=== PATIENT | male | born 1935 | race Caucasian/White ===

== ENCOUNTER 2017-07-30 19:30 | Inpatient (IN) | payer OTHER, MEDICARE ==
[~2017-07-30] VITALS: Ht 177.8 cm; Wt 80.1 kg
[~2017-07-30 19:30] MED LIST: ASPI81TA28 PO; DIPH50TA10 PO; FURO-85 PO; GLUCTAB7 PO; LEVO50TA6 PO; LOSA1TAB PO; LPT20 PO; MELATAB2 PO; METO25TA4 PO; NTRGSL/4 UT; PRLSR20 PO; SPIR25TA PO
[2017-07-30] MEDS ORDERED: SODIUM CHLORIDE 0.9% 1000ML 1,000 ML IV STA (20:45)
[2017-07-30] MEDS ORDERED: ACETAMINOPHEN 325 MG TAB PO STA (20:45)
[2017-07-30] MEDS ORDERED: IBUPROFEN 600 MG TAB PO STA (20:45)
[2017-07-30] MEDS ORDERED: TPRSR/100 PO (20:54)
[2017-07-30] MEDS ORDERED: LSX20 PO (20:54)
[2017-07-30] MEDS ORDERED: OMEP20CA9 PO (20:54)
[2017-07-30] MEDS ORDERED: CZR25 PO (20:54)
[2017-07-30] MEDS ORDERED: ATOR-22 PO (20:54)
[2017-07-30] MEDS ORDERED: SPR25 PO (20:54)
--- NOTE | 2017-07-30 20:55 | EMERGENCY ROOM VISIT NOTE ---
History Report prepared by Solange: Jorge Pinedo Under the Supervision of: Dr. Ludwig Herrera M.D. First contact with patient: 20:13 Chief Complaint: ILLNESS Stated Complaint: CONFUSION, DIZZY, COUGH, CHILLS History of Present Illness The patient is a 81 year old male with a past medical history of hypothyroidism who presents to the ED with a cc of intermittent dizziness beginning two days ago. Positive for fever, lightheadedness, back pain, confused speech, and dry cough. Negative for heart racing, vomiting, rashes, urinary symptoms, abdominal pain, and bowel issues. The patient states that he is currently feeling less dizzy than he typically has been for the last two days. He notes that when he is dizzy, he feels lightheaded. He reports that he has chronic pain in his lower back and middle back. The patient states that his pain stays in those spots and does not move. Per family, the patient has been having confused speech this evening. Source of History: patient, family Onset: two days ago Position: head Quality: other (dizziness) Timing: intermittent Associated Symptoms: + fevers, + cough (dry), + back pain, No vomiting, No abdominal pain, No urinary symptoms, No rash Note: The patient also complains of lightheadedness and confused speech. He denies any heart racing and bowel issues. Review of Systems See HPI for pertinent positives and negatives. A total of ten systems were reviewed and were otherwise negative. Past Medical & Surgical Medical Problems: (1) Biventricular ICD (implantable cardioverter-defibrillator) in place (2) BPH without obstruction/lower urinary tract symptoms (3) Chronic back pain (4) Coronary atherosclerosis (5) Frequent unifocal PVCs (6) Hypercholesteremia (7) Hypothyroidism (8) Influenza (9) LBBB (left bundle branch block) (10) NICM (nonischemic cardiomyopathy) (11) Non-rheumatic mitral regurgitation (12) S/P hernia repair Family History FH: diabetes mellitus FH: hypertension FH: lung disease Social History Smoking Status: Never Smoker Alcohol Use: none Drug Use: none Marital Status: Housing Status: lives with family Occupation Status: unemployed Current/Historical Medications Scheduled Aspirin (Aspirin Ec), 81 MG PO QPM Atorvastatin (Lipitor), 20 MG PO QPM Furosemide (Furosemide), 20 MG PO QAM Levothyroxine Sodium (Levothyroxine Sodium), 50 MCG PO 6XWEEK Losartan Potassium (Losartan Potassium), 25 MG PO QAM Metoprolol Succinate (Metoprolol Succinate ER), 100 MG PO QAM Omeprazole (Prilosec), 20 MG PO QAM Spironolactone (Spironolactone), 12.5 MG PO QAM Scheduled PRN Diphenhydramine Hcl (Benadryl Allergy), 1 CAP PO HS PRN for insomnia Melatonin (Melatonin Maximum Strengt), 5-10 MG PO HS PRN for Sleep Nitroglycerin (Nitrostat), 0.4 MG UT UD PRN for Chest Pain Allergies Coded Allergies: No Known Allergies (Unverified , 12/17/15) Physical Exam Vital Signs Date Time Temp Pulse Resp B/P (MAP) Pulse Ox O2 Delivery O2 Flow Rate FiO2 07/30/17 21:37 38.1 89 16 161/80 96 Room Air 07/30/17 21:10 61 07/30/17 21:10 90 07/30/17 21:05 96 Room Air 07/30/17 19:32 38.1 92 18 141/77 96 Room Air Physical Exam GENERAL: Awake, alert, well-appearing, NAD, wearing glasses HENT: Normocephalic, atraumatic. EYES: Normal conjunctiva. Sclera non-icteric. NECK: Supple. No nuchal rigidity. FROM. RESPIRATORY: CTAB, no rhonchi, wheezing, crackles CHEST: Device noted in L chest, no chest wall pain CARDIAC: RRR, no MRG ABDOMEN: Soft, NTND, BS+ MSK: No chest wall TTP, no LE edema NEURO: CN 2-12 intact, 5/5 upper and lower extremity strength, no dysmetria, no drift, good finger to nose, no sensory deficits, A&O x3, GCS 15. SKIN: No rash or jaundice noted. Medical Decision & Procedures ER Provider Diagnostic Interpretation: Radiology results as stated below per my review and radiologist interpretation: CHEST ONE VIEW PORTABLE FINDINGS: Cardiac silhouette is again enlarged. Left subclavian pacer/AICD is noted with leads appearing to be intact. There is mild pulmonary vascular congestion without overt pulmonary edema. No pneumothorax. There are subsegmental left basilar opacities with blunting of the left costophrenic angle. Bones appear grossly intact. IMPRESSION: 1. Cardiomegaly with mild pulmonary vascular congestion. 2. Subsegmental left basilar opacities suggest atelectasis or pneumonitis with probable trace left pleural effusion. The above report was generated using voice recognition software. It may contain grammatical, syntax or spelling errors. Electronically signed by: Jonathon Flor M.D. 07/30/2017 9:16 PM HEAD WITHOUT CONTRAST (CT) FINDINGS: No acute intracranial hemorrhage, midline shift, intracranial mass, hydrocephalus, territorial ischemia or abnormal extra-axial collection. Mild atrophy. Cerebral vascular calcifications are seen at the level of the skull base. The calvarium is intact. Mild mucoperiosteal thickening about the right maxillary sinus with mild ethmoid sinus disease. Soft tissues are unremarkable. Orbits are symmetric. IMPRESSION: No acute intracranial abnormality. The above report was generated using voice recognition software. It may contain grammatical, syntax or spelling errors. Electronically signed by: Jonathon Flor M.D. 07/30/2017 9:37 PM Laboratory Results 07/30/17 20:00 Red Blood Count 4.59, Mean Corpuscular Volume 92.8, Mean Corpuscular Hemoglobin 33.1, Mean Corpuscular Hemoglobin Concent 35.7, Mean Platelet Volume 9.9, Neutrophils (%) (Auto) 82.4, Lymphocytes (%) (Auto) 10.8, Monocytes (%) (Auto) 6.4, Eosinophils (%) (Auto) 0.0, Basophils (%) (Auto) 0.2, Neutrophils # (Auto) 4.64, Lymphocytes # (Auto) 0.61, Monocytes # (Auto) 0.36, Eosinophils # (Auto) 0.00, Basophils # (Auto) 0.01 07/30/17 20:00 Test 07/30/17 20:00 07/30/17 20:55 07/30/17 21:00 White Blood Count 5.63 K/uL (4.8-10.8) Red Blood Count 4.59 M/uL (4.7-6.1) Hemoglobin 15.2 g/dL (14.0-18.0) Hematocrit 42.6 % (42-52) Mean Corpuscular Volume 92.8 fL (80-100) Mean Corpuscular Hemoglobin 33.1 pg (25-34) Mean Corpuscular Hemoglobin Concent 35.7 g/dl (32-36) Platelet Count 160 K/uL (130-400) Mean Platelet Volume 9.9 fL (7.4-10.4) Neutrophils (%) (Auto) 82.4 % Lymphocytes (%) (Auto) 10.8 % Monocytes (%) (Auto) 6.4 % Eosinophils (%) (Auto) 0.0 % Basophils (%) (Auto) 0.2 % Neutrophils # (Auto) 4.64 K/uL (1.4-6.5) Lymphocytes # (Auto) 0.61 K/uL (1.2-3.4) Monocytes # (Auto) 0.36 K/uL (0.11-0.59) Eosinophils # (Auto) 0.00 K/uL (0-0.5) Basophils # (Auto) 0.01 K/uL (0-0.2) RDW Standard Deviation 45.1 fL (36.4-46.3) RDW Coefficient of Variation 13.2 % (11.5-14.5) Immature Granulocyte % (Auto) 0.2 % Immature Granulocyte # (Auto) 0.01 K/uL (0.00-0.02) Anion Gap 5.0 mmol/L (3-11) Est Creatinine Clear Calc Drug Dose 61.2 ml/min Estimated GFR () 81.6 Estimated GFR (Non- 70.4 BUN/Creatinine Ratio 12.4 (10-20) Calcium Level 8.6 mg/dl (8.5-10.1) Total Bilirubin 0.6 mg/dl (0.2-1) Direct Bilirubin 0.2 mg/dl (0-0.2) Aspartate Amino Transf (AST/SGOT) 24 U/L (15-37) Alanine Aminotransferase (ALT/SGPT) 26 U/L (12-78) Alkaline Phosphatase 84 U/L (45-117) Total Protein 7.6 gm/dl (6.4-8.2) Albumin 4.2 gm/dl (3.4-5.0) Lipase 139 U/L (73-393) Influenza Type A Antigen Neg for Influ A (NEG) Influenza Type B Antigen POS for Influ B (NEG) Urine Color YELLOW Urine Appearance CLEAR (CLEAR) Urine pH 5.0 (4.5-7.5) Urine Specific [place] 1.018 (1.000-1.030) Urine Protein NEG (NEG) Urine Glucose (UA) NEG (NEG) Urine Ketones TRACE (NEG) Urine Occult Blood TRACE (NEG) Urine Nitrite NEG (NEG) Urine Bilirubin NEG (NEG) Urine Urobilinogen NEG (NEG) Urine Leukocyte Esterase NEG (NEG) Urine WBC (Auto) 0 /hpf (0-5) Urine RBC (Auto) 0-4 /hpf (0-4) Urine Hyaline Casts (Auto) 0 /lpf (0-5) Urine Epithelial Cells (Auto) 0-5 /lpf (0-5) Urine Bacteria (Auto) NEG (NEG) Laboratory results reviewed by me Medications Administered Medications (Trade) Dose Ordered Sig/Todd Route Start Time Stop Time Status Last Admin Dose Admin Sodium Chloride 1,000 ml @ 999 mls/hr Q1H1M STAT IV 07/30/17 20:45 07/30/17 21:45 DC 07/30/17 20:45 999 MLS/HR Acetaminophen (Tylenol Tab) 650 mg NOW STAT PO 07/30/17 20:45 07/30/17 20:46 DC 07/30/17 20:56 650 MG Ibuprofen (Motrin Tab) 600 mg NOW STAT PO 07/30/17 20:45 07/30/17 20:46 DC 07/30/17 20:56 600 MG Ceftriaxone Sodium (Rocephin Inj) 1 gm NOW STAT IV 07/30/17 21:43 07/30/17 21:44 DC 07/30/17 21:51 1 GM Azithromycin (Zithromax Tab) 500 mg NOW ONCE PO 07/30/17 21:45 07/30/17 21:46 DC 07/30/17 21:51 500 MG Oseltamivir Phosphate (Tamiflu Cap) 75 mg NOW STAT PO 07/30/17 21:56 07/30/17 21:57 DC 07/30/17 21:56 75 MG ECG Per My Interpretation Indication: other (dizziness) Rate (beats per minute): 90 Rhythm: other (a-sense v-paced) Findings: Q waves (Anterior, Inferior), left axis deviation, other (Wide QRS, occasionally v paced) Comparison ECG Date: March 2015 Change: Pacing is new compared to prior. ED Course 2100: The patient was evaluated in room B7. A complete history and physical exam was performed. 2212: Upon reexamination, the patient was stable. I discussed the test results and treatment plan with him. Discussed the patient's case with Dr. Seo - HospitalistLouie. The patient will be evaluated for further management. 2220: I reevaluated and updated the patient. Medical Decision The patient is a 81 year old male with a past medical history of hypothyroidism who presents to the ED with a cc of intermittent dizziness beginning two days ago. Positive for fever, lightheadedness, back pain, confused speech, and dry cough. Negative for heart racing, vomiting, rashes, urinary symptoms, abdominal pain, and bowel issues. Differential diagnosis: Etiologies such as benign positional vertigo, dehydration, hypovolemia, anemia, tumor, infection, hypoglycemia, electrolyte abnormalities, cardiac sources, intracerebral event, toxicologic, neurologic, as well as others were entertained. Patient was seen and evaluated the bedside. Patient had complained of some intermittent dizziness although he was asymptomatic at this time. Patient described as lightheadedness. Patient also describes some back pain that was midline and nonradiating. Patient states that this been ongoing for many years though patient also did have a dry cough. The family over the bedside was concerned as the patient has had some confused speech. On exam the patient is alert and oriented. The patient is able to follow my commands does not have any focal neurologic deficits. No recent trauma. Patient does have blood work completed along with an EKG, troponin, chest x-ray, CT brain, and urinalysis. Patient has a normal white blood cell count. Patient kidney function normal. Patient had a negative CT of the brain. Patient's showed no signs of meningismus. I do not believe he requires lumbar puncture or further advanced imaging at this time. Patient's chest x-ray did show questionable opacities at the left base. Given the patient's cough as well as confusion is concerned about possible pneumonia. Patient was given Rocephin and azithromycin. Patient also did have a positive flu and was given Tamiflu. Patient did have a curb 65 score of 2. I discussed these results with the patient and recommended further inpatient evaluation treatment. I did speak with the hospitalist who also agreed to further evaluate and treat patient. Patient was admitted to the medicine service. Head Trauma GCS Score: 15 Medication Reconcilliation Current Medication List: was personally reviewed by me Blood Pressure Screening Patient's blood pressure: Normal blood pressure Blood pressure disposition: Did not require urgent referral Consults Time Called: 2209 Consulting Physician: Dr. Seo - HospitalistLouie Returned Call: [phone] Discussed the patient's case. The patient will be evaluated for further treatment and disposition. Impression Primary Impression: Pneumonia Additional Impressions: Influenza B Confusion Scribe Attestation The scribe's documentation has been prepared under my direction and personally reviewed by me in its entirety. I confirm that the note above accurately reflects all work, treatment, procedures, and medical decision making performed by me. Departure Information Dispostion Being Evaluated By Hospitalist Referrals Reese Nieto M.D. (PCP) Patient Instructions My [facility] Problem Qualifiers Primary Impression: Pneumonia Pneumonia type: due to unspecified organism Laterality: left Lung location : lower lobe of lung Qualified Codes: J18.1 - Lobar pneumonia, unspecified organism
[2017-07-30 21:05] LABS: BASO % 0.2 %; BASO ABS # 0.01 K/uL (0-0.2); HEMATOCRIT 42.6 % (42-52); HEMOGLOBIN 15.2 g/dL (14.0-18.0); IG# 0.01 K/uL (0.00-0.02); LYMPH % 10.8 %; LYMPH ABS # 0.61 K/uL (1.2-3.4); MEAN CELL VOLUME 92.8 fL (80-100); MEAN CORPUSCULAR HEMOGLOBIN 33.1 pg (25-34); MEAN CORPUSCULAR HGB CONC 35.7 g/dl (32-36); MEAN PLATELET VOLUME 9.9 fL (7.4-10.4); MONO % 6.4 %; MONO ABS # 0.36 K/uL (0.11-0.59); NEUT % 82.4 %; NEUT ABS # 4.64 K/uL (1.4-6.5); PLATELET COUNT 160 K/uL (130-400); RED CELL DISTRIBUTION WIDTH CV 13.2 % (11.5-14.5); RED CELL DISTRIBUTION WIDTH SD 45.1 fL (36.4-46.3); WHITE BLOOD COUNT 5.63 K/uL (4.8-10.8)
[2017-07-30 21:15] LABS: ALBUMIN 4.2 gm/dl (3.4-5.0); CALCIUM 8.6 mg/dl (8.5-10.1); CREATININE 1.01 mg/dl (0.60-1.40); POTASSIUM 3.8 mmol/L (3.5-5.1)
--- NOTE | 2017-07-30 21:17 | DIAGNOSTIC IMAGING REPORT ---
CHEST ONE VIEW PORTABLE HISTORY: 81 years-old Male Evaluate Fever/Sepsis acute fever and sepsis COMPARISON: Chest radiographs 12/21/2014 TECHNIQUE: Portable AP view of the chest FINDINGS: Cardiac silhouette is again enlarged. Left subclavian pacer/AICD is noted with leads appearing to be intact. There is mild pulmonary vascular congestion without overt pulmonary edema. No pneumothorax. There are subsegmental left basilar opacities with blunting of the left costophrenic angle. Bones appear grossly intact. IMPRESSION: 1. Cardiomegaly with mild pulmonary vascular congestion. 2. Subsegmental left basilar opacities suggest atelectasis or pneumonitis with probable trace left pleural effusion. The above report was generated using voice recognition software. It may contain grammatical, syntax or spelling errors. Electronically signed by: Jonathon Flor M.D. 07/30/2017 9:16 PM Dictated Date/Time: 07/30/2017 9:13 PM
[2017-07-30 21:18] LABS: TOTAL PROTEIN 7.6 gm/dl (6.4-8.2)
--- NOTE | 2017-07-30 21:39 | DIAGNOSTIC IMAGING REPORT ---
HEAD WITHOUT CONTRAST (CT) CLINICAL HISTORY: 81 years-old Male with confusion, fever. Acute fever with confusion TECHNIQUE: Multiple axial CT images of the head were obtained without contrast. A dose lowering technique was utilized adhering to the principles of ALARA. CT DOSE: 776.86 mGycm COMPARISON: None. FINDINGS: No acute intracranial hemorrhage, midline shift, intracranial mass, hydrocephalus, territorial ischemia or abnormal extra-axial collection. Mild atrophy. Cerebral vascular calcifications are seen at the level of the skull base. The calvarium is intact. Mild mucoperiosteal thickening about the right maxillary sinus with mild ethmoid sinus disease. Soft tissues are unremarkable. Orbits are symmetric. IMPRESSION: No acute intracranial abnormality. The above report was generated using voice recognition software. It may contain grammatical, syntax or spelling errors. Electronically signed by: Jonathon Flor M.D. 07/30/2017 9:37 PM Dictated Date/Time: 07/30/2017 9:35 PM
[2017-07-30] MEDS ORDERED: CEFTRIAXONE SOD INJ 1 GM ADDVIAL IV STA (21:43)
[2017-07-30] MEDS ORDERED: AZITHROMYCIN 250 MG TAB PO ONE (21:45)
[2017-07-30 21:52] LABS: INFLUENZA B ANTIGEN POS for Influ B (NEG)
[2017-07-30] MEDS ORDERED: OSELTAMIVIR PHOSPHATE 75 MG CAP PO STA (21:56)
[2017-07-30] MEDS ORDERED: ACETAMINOPHEN 325 MG TAB PO PRN (23:00)
[2017-07-30] MEDS ORDERED: ONDANSETRON INJ 2 MG/ML 2 ML VIAL IV PRN (23:00)
[2017-07-30] MEDS ORDERED: POLYETHYLENE (MIRALAX) 17 GM PACK PO PRN (23:00)
[2017-07-30] MEDS ORDERED: DIPH25CA65 PO (23:08)
[2017-07-30 23:13] VITALS: O2SAT 95
[2017-07-30] MEDS ORDERED: NON-FORMULARY MEDICATION (Melatonin (Melatonin Maximum Strengt) 5 MG) PO PRN (23:15)
[2017-07-30] MEDS ORDERED: NITROGLYCERIN 0.4 MG SL PER TAB CHARGE UT PRN (23:15)
--- NOTE | 2017-07-30 23:30 | History and Physical ---
History & Physical Date & Time of Service: Jul 30, 2017 at 23:10 Chief Complaint: Confusion, Dizzy, Cough, Chills Primary Care Physician: Reese Nieto M.D. History of Present Illness Source: patient, family, clinic records, hospital records The patient is a 81-year-old male who presents to the emergency room with his daughter reporting confusion and dizziness as well as fevers chills back pain, confused speech, and a dry cough for the last 2 days. The patient currently states that he is feeling well overall after receiving Tylenol and. He has no gross neurologic deficits and walked into the ER himself tonight. Daughter reports that around the house today he was walking around in a heavy bathrobe and appearing to have malaise regarding confusion, there was no speech deficit or strokelike symptoms however the patient was not responding to questions appropriately. This was unlike his baseline. He is currently alert and oriented 3. The patient is not able to give a good picture of what has been going on at home in the last he was febrile in the ER up to 38.1 on arrival which is improved with Tylenol. Daughter states he was up all night last night with runny nose and cough. Review of systems reveals no diarrhea abdominal pain headache chest pain or shortness of breath. Cough is nonproductive. In the ER blood pressure is 141/77 pulse 92 he is oxygenating 96% on room air. Lab results reveal a normal white count normal H&H, normal renal function and normal electrolytes. He is flu B+. Urinalysis was negative for bacteria. 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 (3) Coronary atherosclerosis Status: Chronic (4) Hypercholesteremia Status: Chronic (5) Hypothyroidism Status: Chronic (6) LBBB (left bundle branch block) Status: Chronic (7) NICM (nonischemic cardiomyopathy) Status: Chronic (8) Non-rheumatic mitral regurgitation Status: Chronic (9) S/P hernia repair Status: Resolved Family History FH: brain tumor SISTER FH: cancer MOTHER Social History Smoking Status: Never Smoker Smokeless Tobacco Use: No Alcohol Use: socially Drug Use: none Marital Status: Housing status: lives with family (Patient lives with and daughter and son.), lives with significant other Occupational Status: unemployed Immunizations History of Influenza Vaccine: Yes Influenza Vaccine Date: May 28, 2017 History of Tetanus Vaccine?: Yes Tetanus Immunization Date: Nov 03, 2007 History of Pneumococcal: Yes Pneumococcal Date: Mar 03, 2016 Allergies Coded Allergies: No Known Allergies (Unverified , 12/17/15) Home Medications Scheduled Aspirin (Aspirin Ec), 81 MG PO QPM Atorvastatin (Lipitor), 20 MG PO QPM Furosemide (Furosemide), 20 MG PO QAM Levothyroxine Sodium (Levothyroxine Sodium), 50 MCG PO 6XWEEK Losartan Potassium (Losartan Potassium), 25 MG PO QAM Metoprolol Succinate (Metoprolol Succinate ER), 100 MG PO QAM Omeprazole (Prilosec), 20 MG PO QAM Spironolactone (Spironolactone), 12.5 MG PO QAM Scheduled PRN Diphenhydramine Hcl (Benadryl Allergy), 1 CAP PO HS PRN for insomnia Melatonin (Melatonin Maximum Strengt), 5-10 MG PO HS PRN for Sleep Nitroglycerin (Nitrostat), 0.4 MG UT UD PRN for Chest Pain Review of Systems At least 10 systems were reviewed and negative except as indicated in HPI Physical Exam Vital Signs Date Time Temp Pulse Resp B/P (MAP) Pulse Ox O2 Delivery O2 Flow Rate FiO2 07/30/17 22:41 37.4 86 16 128/68 95 Room Air 07/30/17 21:37 38.1 89 16 161/80 96 Room Air 07/30/17 21:10 61 07/30/17 21:10 90 07/30/17 21:05 96 Room Air 07/30/17 19:32 38.1 92 18 141/77 96 Room Air General Appearance: WD/WN, no apparent distress Head: normocephalic, atraumatic Eyes: normal inspection, PERRL, sclerae normal ENT: hearing grossly normal, pharynx normal Neck: supple, no adenopathy, no JVD, trachea midline Respiratory/Chest: chest non-tender, lungs clear, normal breath sounds, no respiratory distress, no accessory muscle use, + pertinent finding (ICD in place left anterior chest wall) Cardiovascular: regular rate, rhythm, no edema, no gallop, no murmur, normal peripheral pulses Abdomen/GI: normal bowel sounds, non tender, soft, no organomegaly Extremities/Musculoskelatal: normal inspection, no calf tenderness, normal capillary refill, no pedal edema, normal range of motion Neurologic/Psych: 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, no motor/sensory deficits, alert, normal mood/affect, oriented x 3 Skin: normal color, warm/dry, no rash Diagnostics Laboratory Results 07/30/17 20:00 Red Blood Count 4.59, Mean Corpuscular Volume 92.8, Mean Corpuscular Hemoglobin 33.1, Mean Corpuscular Hemoglobin Concent 35.7, Mean Platelet Volume 9.9, Neutrophils (%) (Auto) 82.4, Lymphocytes (%) (Auto) 10.8, Monocytes (%) (Auto) 6.4, Eosinophils (%) (Auto) 0.0, Basophils (%) (Auto) 0.2, Neutrophils # (Auto) 4.64, Lymphocytes # (Auto) 0.61, Monocytes # (Auto) 0.36, Eosinophils # (Auto) 0.00, Basophils # (Auto) 0.01 07/30/17 20:00 Test 07/30/17 20:00 07/30/17 20:55 07/30/17 21:00 White Blood Count 5.63 K/uL (4.8-10.8) Red Blood Count 4.59 M/uL (4.7-6.1) Hemoglobin 15.2 g/dL (14.0-18.0) Hematocrit 42.6 % (42-52) Mean Corpuscular Volume 92.8 fL (80-100) Mean Corpuscular Hemoglobin 33.1 pg (25-34) Mean Corpuscular Hemoglobin Concent 35.7 g/dl (32-36) Platelet Count 160 K/uL (130-400) Mean Platelet Volume 9.9 fL (7.4-10.4) Neutrophils (%) (Auto) 82.4 % Lymphocytes (%) (Auto) 10.8 % Monocytes (%) (Auto) 6.4 % Eosinophils (%) (Auto) 0.0 % Basophils (%) (Auto) 0.2 % Neutrophils # (Auto) 4.64 K/uL (1.4-6.5) Lymphocytes # (Auto) 0.61 K/uL (1.2-3.4) Monocytes # (Auto) 0.36 K/uL (0.11-0.59) Eosinophils # (Auto) 0.00 K/uL (0-0.5) Basophils # (Auto) 0.01 K/uL (0-0.2) RDW Standard Deviation 45.1 fL (36.4-46.3) RDW Coefficient of Variation 13.2 % (11.5-14.5) Immature Granulocyte % (Auto) 0.2 % Immature Granulocyte # (Auto) 0.01 K/uL (0.00-0.02) Anion Gap 5.0 mmol/L (3-11) Est Creatinine Clear Calc Drug Dose 61.2 ml/min Estimated GFR () 81.6 Estimated GFR (Non- 70.4 BUN/Creatinine Ratio 12.4 (10-20) Calcium Level 8.6 mg/dl (8.5-10.1) Total Bilirubin 0.6 mg/dl (0.2-1) Direct Bilirubin 0.2 mg/dl (0-0.2) Aspartate Amino Transf (AST/SGOT) 24 U/L (15-37) Alanine Aminotransferase (ALT/SGPT) 26 U/L (12-78) Alkaline Phosphatase 84 U/L (45-117) Total Protein 7.6 gm/dl (6.4-8.2) Albumin 4.2 gm/dl (3.4-5.0) Lipase 139 U/L (73-393) Influenza Type A Antigen Neg for Influ A (NEG) Influenza Type B Antigen POS for Influ B (NEG) Urine Color YELLOW Urine Appearance CLEAR (CLEAR) Urine pH 5.0 (4.5-7.5) Urine Specific [place] 1.018 (1.000-1.030) Urine Protein NEG (NEG) Urine Glucose (UA) NEG (NEG) Urine Ketones TRACE (NEG) Urine Occult Blood TRACE (NEG) Urine Nitrite NEG (NEG) Urine Bilirubin NEG (NEG) Urine Urobilinogen NEG (NEG) Urine Leukocyte Esterase NEG (NEG) Urine WBC (Auto) 0 /hpf (0-5) Urine RBC (Auto) 0-4 /hpf (0-4) Urine Hyaline Casts (Auto) 0 /lpf (0-5) Urine Epithelial Cells (Auto) 0-5 /lpf (0-5) Urine Bacteria (Auto) NEG (NEG) Results Past 24 Hours Test 07/30/17 20:00 07/30/17 20:55 07/30/17 21:00 Range/Units White Blood Count 5.63 4.8-10.8 K/uL Red Blood Count 4.59 4.7-6.1 M/uL Hemoglobin 15.2 14.0-18.0 g/dL Hematocrit 42.6 42-52 % Mean Corpuscular Volume 92.8 80-100 fL Mean Corpuscular Hemoglobin 33.1 25-34 pg Mean Corpuscular Hemoglobin Concent 35.7 32-36 g/dl Platelet Count 160 130-400 K/uL Mean Platelet Volume 9.9 7.4-10.4 fL Neutrophils (%) (Auto) 82.4 % Lymphocytes (%) (Auto) 10.8 % Monocytes (%) (Auto) 6.4 % Eosinophils (%) (Auto) 0.0 % Basophils (%) (Auto) 0.2 % Neutrophils # (Auto) 4.64 1.4-6.5 K/uL Lymphocytes # (Auto) 0.61 1.2-3.4 K/uL Monocytes # (Auto) 0.36 0.11-0.59 K/uL Eosinophils # (Auto) 0.00 0-0.5 K/uL Basophils # (Auto) 0.01 0-0.2 K/uL RDW Standard Deviation 45.1 36.4-46.3 fL RDW Coefficient of Variation 13.2 11.5-14.5 % Immature Granulocyte % (Auto) 0.2 % Immature Granulocyte # (Auto) 0.01 0.00-0.02 K/uL Sodium Level 137 136-145 mmol/L Potassium Level 3.8 3.5-5.1 mmol/L Chloride Level 105 98-107 mmol/L Carbon Dioxide Level 27 21-32 mmol/L Anion Gap 5.0 3-11 mmol/L Blood Urea Nitrogen 13 7-18 mg/dl Creatinine 1.01 0.60-1.40 mg/dl Est Creatinine Clear Calc Drug Dose 61.2 ml/min Estimated GFR () 81.6 Estimated GFR (Non- 70.4 BUN/Creatinine Ratio 12.4 10-20 Random Glucose 112 70-99 mg/dl Calcium Level 8.6 8.5-10.1 mg/dl Total Bilirubin 0.6 0.2-1 mg/dl Direct Bilirubin 0.2 0-0.2 mg/dl Aspartate Amino Transf (AST/SGOT) 24 15-37 U/L Alanine Aminotransferase (ALT/SGPT) 26 12-78 U/L Alkaline Phosphatase 84 45-117 U/L Total Protein 7.6 6.4-8.2 gm/dl Albumin 4.2 3.4-5.0 gm/dl Lipase 139 73-393 U/L Influenza Type A Antigen Neg for Influ A NEG Influenza Type B Antigen POS for Influ B NEG Urine Color YELLOW Urine Appearance CLEAR CLEAR Urine pH 5.0 4.5-7.5 Urine Specific [place] 1.018 1.000-1.030 Urine Protein NEG NEG Urine Glucose (UA) NEG NEG Urine Ketones TRACE NEG Urine Occult Blood TRACE NEG Urine Nitrite NEG NEG Urine Bilirubin NEG NEG Urine Urobilinogen NEG NEG Urine Leukocyte Esterase NEG NEG Urine WBC (Auto) 0 0-5 /hpf Urine RBC (Auto) 0-4 0-4 /hpf Urine Hyaline Casts (Auto) 0 0-5 /lpf Urine Epithelial Cells (Auto) 0-5 0-5 /lpf Urine Bacteria (Auto) NEG NEG Diagnostic Radiology HEAD WITHOUT CONTRAST (CT) CLINICAL HISTORY: 81 years-old Male with confusion, fever. Acute fever with confusion TECHNIQUE: Multiple axial CT images of the head were obtained without contrast. A dose lowering technique was utilized adhering to the principles of ALARA. CT DOSE: 776.86 mGycm COMPARISON: None. FINDINGS: No acute intracranial hemorrhage, midline shift, intracranial mass, hydrocephalus, territorial ischemia or abnormal extra-axial collection. Mild atrophy. Cerebral vascular calcifications are seen at the level of the skull base. The calvarium is intact. Mild mucoperiosteal thickening about the right maxillary sinus with mild ethmoid sinus disease. Soft tissues are unremarkable. Orbits are symmetric. IMPRESSION: No acute intracranial abnormality. CHEST ONE VIEW PORTABLE HISTORY: 81 years-old Male Evaluate Fever/Sepsis acute fever and sepsis COMPARISON: Chest radiographs 12/21/2014 TECHNIQUE: Portable AP view of the chest FINDINGS: Cardiac silhouette is again enlarged. Left subclavian pacer/AICD is noted with leads appearing to be intact. There is mild pulmonary vascular congestion without overt pulmonary edema. No pneumothorax. There are subsegmental left basilar opacities with blunting of the left costophrenic angle. Bones appear grossly intact. IMPRESSION: 1. Cardiomegaly with mild pulmonary vascular congestion. 2. Subsegmental left basilar opacities suggest atelectasis or pneumonitis with probable trace left pleural effusion. EKG EKG reveals atrial sensed ventricular paced rhythm at a rate of 90 bpm Impression Assessment and Plan 81-year-old male presents with flu and possible pneumonia admitted after episode of confusion 1. Influenza B-patient is stable and not in respiratory distress, continue Tamiflu and supportive care. 2. Suspected community-acquired pneumonia-Rocephin and azithromycin started. Blood cultures are pending. Patient is not septic. 3. Metabolic encephalopathy secondary to #1 or 2.-Resolved 4. Fever-secondary to #1 and 2. Improved after Tylenol. 5. Chronic back pain-improved after ibuprofen and Tylenol in the ER. Patient is ambulatory without neurologic deficit on exam. 6. Hypothyroidism-continue Synthroid per home regimen 7. Nonischemic cardiomyopathy status post ICD-stable continue medical management with aspirin, Lipitor, furosemide, losartan, Toprol-XL, and spironolactone. 8. Left bundle branch block DVT prophylaxis-Lovenox Full code per my conversation with the patient and his daughter on admission Disposition-[facility], expect discharge within the next 1-2 days. Charlene Seo DO [facility] Resuscitation Status VTE Prophylaxis Will order VTE Prophylaxis: Yes
[2017-07-31 02:22] VITALS: BP 128/68; TEMP 37.4; Ht 177.8 cm; Wt 80.1 kg
[2017-07-31] MEDS ORDERED: LEVOTHYROXINE 50 MCG TAB PO SCH (06:00)
[2017-07-31 07:19] VITALS: BP 139/65; PULSE 91; TEMP 37.3; O2SAT 97
[2017-07-31 07:52] LABS: HEMATOCRIT 43.9 % (42-52); MEAN CELL VOLUME 92.8 fL (80-100); MEAN CORPUSCULAR HEMOGLOBIN 31.7 pg (25-34); MEAN CORPUSCULAR HGB CONC 34.2 g/dl (32-36); MEAN PLATELET VOLUME 9.6 fL (7.4-10.4); PLATELET COUNT 139 K/uL (130-400); RED CELL DISTRIBUTION WIDTH CV 13.6 % (11.5-14.5); RED CELL DISTRIBUTION WIDTH SD 46.3 fL (36.4-46.3); WHITE BLOOD COUNT 4.05 K/uL (4.8-10.8)
[2017-07-31] MEDS ORDERED: FUROSEMIDE 20 MG TAB PO SCH (08:00)
[2017-07-31] MEDS ORDERED: SPIRONOLACTONE 25 MG TAB PO SCH (08:00)
[2017-07-31] MEDS ORDERED: PANTOprazole SOD 40 MG TAB PO SCH (08:00)
[2017-07-31] MEDS ORDERED: OSELTAMIVIR PHOSPHATE 75 MG CAP PO SCH (08:00)
[2017-07-31] MEDS ORDERED: METOPROLOL SUCC 50MG EXT REL TAB PO SCH (08:00)
[2017-07-31] MEDS ORDERED: LOSARTAN POTASSIUM 25 MG TAB PO SCH (08:00)
[2017-07-31 08:27] LABS: CALCIUM 8.3 mg/dl (8.5-10.1); CREATININE 0.78 mg/dl (0.60-1.40); POTASSIUM 3.6 mmol/L (3.5-5.1)
[2017-07-31] MEDS ORDERED: ENOXAPARIN 40 MG/0.4 ML SYR SQ SCH (09:00)
[2017-07-31] MEDS ORDERED: TMF75 PO (12:25)
[2017-07-31] MEDS ORDERED: AZIT-57 OR (12:32)
--- NOTE | 2017-07-31 13:11 | Progress Note ---
Internal Med Progress Note Date of Service: Jul 31, 2017. Provider Documentation: SUBJECTIVE: patient without any discomfort, breathing on room air, and ambulating while on room air without difficulties OBJECTIVE: General Appearance: WD/WN, no apparent distress Head: normocephalic, atraumatic Eyes: normal inspection, PERRL, sclerae normal ENT: hearing grossly normal, pharynx normal Neck: supple, no adenopathy, no JVD, trachea midline Respiratory/Chest: chest non-tender, lungs clear, normal breath sounds, no respiratory distress, no accessory muscle use, ICD in place left anterior chest wall Cardiovascular: regular rate, rhythm, no edema, no gallop, no murmur, normal peripheral pulses Abdomen/GI: normal bowel sounds, non tender, soft, no organomegaly Extremities/Musculoskelatal: normal inspection, no calf tenderness, normal capillary refill, no pedal edema, normal range of motion 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, no motor/sensory deficits, alert, normal mood/affect, oriented x 3 Skin: normal color, warm/dry, no rash ASSESSMENT & PLAN: Hospital course and Discharge instructions 81-year-old male who presents to the emergency room with his daughter reporting confusion and dizziness as well as fevers chills back pain, confused speech, and a dry cough for the last 2 days Patient was evaluated by night time medical doctor and as per reports these symptoms appeared to have generally resolved by the time he was admitted as inpatient On re-evaluation by day time medical doctor, patient without any discomfort, breathing on room air, and ambulating while on room air without difficulties Patient is positive for influenza B and received Tamiflu (Oseltamivir) medication in the hospital and to be given discharge prescription for Tamiflu ( Oseltamivir) On Chest X ray there is cardiomegaly with mild pulmonary vascular congestion; Subsegmental left basilar opacities suggest atelectasis or pneumonitis with probable trace left pleural effusion No strong evidence for community acquire pneumonia but patient was empirically given ceftriaxone and azithromycin in the hospital for possible community acquire pneumonia. Patient to be discharge with prescription of azithromycin for completion of treatment in case there is community acquire pneumonia Discharge diagnosis fever from Influenza B or possible community acquired pneumonia nonischemic cardiomyopathy status post ICD with left bundle branch block ( chronic conditions) back pain (resolved) Patient has follow up appointment 08/05/2017 1:20 PM Augusto Monson MD Internal Medicine [facility] Patient will benefit from repeat chest X ray as outpatient to follow up hospital imaging findings Patient also has prior made appointments with cardiology 08/24/2017 10:30 AM Pacer Clinic [facility] Cardiology, [facility] 09/22/2017 9:30 AM Hospital Nursing Assistant 1 Gw Cardiac Studies, [facility] 09/29/2017 9:30 AM Lupillo Quintero DO Cardiology [facility] Vital Signs: Date Time Temp Pulse Resp B/P (MAP) Pulse Ox O2 Delivery O2 Flow Rate FiO2 07/31/17 09:00 Room Air 07/31/17 07:19 37.3 91 20 139/65 (89) 97 Room Air 07/31/17 02:22 37.4 16 128/68 Room Air 07/30/17 23:13 37.4 86 16 128/68 95 07/30/17 22:41 37.4 86 16 128/68 95 Room Air 07/30/17 21:37 38.1 89 16 161/80 96 Room Air 07/30/17 21:10 61 07/30/17 21:10 90 07/30/17 21:05 96 Room Air 07/30/17 19:32 38.1 92 18 141/77 96 Room Air Lab Results: Results Past 24 Hours Test 07/30/17 20:00 07/30/17 20:55 07/30/17 21:00 07/30/17 21:05 Range/Units White Blood Count 5.63 4.8-10.8 K/uL Red Blood Count 4.59 4.7-6.1 M/uL Hemoglobin 15.2 14.0-18.0 g/dL Hematocrit 42.6 42-52 % Mean Corpuscular Volume 92.8 80-100 fL Mean Corpuscular Hemoglobin 33.1 25-34 pg Mean Corpuscular Hemoglobin Concent 35.7 32-36 g/dl Platelet Count 160 130-400 K/uL Mean Platelet Volume 9.9 7.4-10.4 fL Neutrophils (%) (Auto) 82.4 % Lymphocytes (%) (Auto) 10.8 % Monocytes (%) (Auto) 6.4 % Eosinophils (%) (Auto) 0.0 % Basophils (%) (Auto) 0.2 % Neutrophils # (Auto) 4.64 1.4-6.5 K/uL Lymphocytes # (Auto) 0.61 1.2-3.4 K/uL Monocytes # (Auto) 0.36 0.11-0.59 K/uL Eosinophils # (Auto) 0.00 0-0.5 K/uL Basophils # (Auto) 0.01 0-0.2 K/uL RDW Standard Deviation 45.1 36.4-46.3 fL RDW Coefficient of Variation 13.2 11.5-14.5 % Immature Granulocyte % (Auto) 0.2 % Immature Granulocyte # (Auto) 0.01 0.00-0.02 K/uL Sodium Level 137 136-145 mmol/L Potassium Level 3.8 3.5-5.1 mmol/L Chloride Level 105 98-107 mmol/L Carbon Dioxide Level 27 21-32 mmol/L Anion Gap 5.0 3-11 mmol/L Blood Urea Nitrogen 13 7-18 mg/dl Creatinine 1.01 0.60-1.40 mg/dl Est Creatinine Clear Calc Drug Dose 61.2 ml/min Estimated GFR () 81.6 Estimated GFR (Non- 70.4 BUN/Creatinine Ratio 12.4 10-20 Random Glucose 112 70-99 mg/dl Calcium Level 8.6 8.5-10.1 mg/dl Total Bilirubin 0.6 0.2-1 mg/dl Direct Bilirubin 0.2 0-0.2 mg/dl Aspartate Amino Transf (AST/SGOT) 24 15-37 U/L Alanine Aminotransferase (ALT/SGPT) 26 12-78 U/L Alkaline Phosphatase 84 45-117 U/L Total Protein 7.6 6.4-8.2 gm/dl Albumin 4.2 3.4-5.0 gm/dl Lipase 139 73-393 U/L Influenza Type A Antigen Neg for Influ A NEG Influenza Type B Antigen POS for Influ B NEG Urine Color YELLOW Urine Appearance CLEAR CLEAR Urine pH 5.0 4.5-7.5 Urine Specific [place] 1.018 1.000-1.030 Urine Protein NEG NEG Urine Glucose (UA) NEG NEG Urine Ketones TRACE NEG Urine Occult Blood TRACE NEG Urine Nitrite NEG NEG Urine Bilirubin NEG NEG Urine Urobilinogen NEG NEG Urine Leukocyte Esterase NEG NEG Urine WBC (Auto) 0 0-5 /hpf Urine RBC (Auto) 0-4 0-4 /hpf Urine Hyaline Casts (Auto) 0 0-5 /lpf Urine Epithelial Cells (Auto) 0-5 0-5 /lpf Urine Bacteria (Auto) NEG NEG Bedside Troponin I < 0.030 0-0.045 ng/ml Test 07/31/17 07:38 Range/Units White Blood Count 4.05 4.8-10.8 K/uL Red Blood Count 4.73 4.7-6.1 M/uL Hemoglobin 15.0 14.0-18.0 g/dL Hematocrit 43.9 42-52 % Mean Corpuscular Volume 92.8 80-100 fL Mean Corpuscular Hemoglobin 31.7 25-34 pg Mean Corpuscular Hemoglobin Concent 34.2 32-36 g/dl RDW Standard Deviation 46.3 36.4-46.3 fL RDW Coefficient of Variation 13.6 11.5-14.5 % Platelet Count 139 130-400 K/uL Mean Platelet Volume 9.6 7.4-10.4 fL Prothrombin Time 10.9 9.0-12.0 SECONDS Prothromb Time International Ratio 1.0 0.9-1.1 Sodium Level 141 136-145 mmol/L Potassium Level 3.6 3.5-5.1 mmol/L Chloride Level 107 98-107 mmol/L Carbon Dioxide Level 27 21-32 mmol/L Anion Gap 7.0 3-11 mmol/L Blood Urea Nitrogen 12 7-18 mg/dl Creatinine 0.78 0.60-1.40 mg/dl Est Creatinine Clear Calc Drug Dose 79.3 ml/min Estimated GFR () 99.5 Estimated GFR (Non- 85.9 BUN/Creatinine Ratio 15.5 10-20 Random Glucose 80 70-99 mg/dl Calcium Level 8.3 8.5-10.1 mg/dl
--- NOTE | 2017-07-31 13:20 | Discharge Instructions ---
Discharge Instructions Date of Service Jul 31, 2017. Admission Reason for Admission: Influenza Discharge Discharge Diagnosis / Problem: fever, influenza B, possible community acquire pneumonia Discharge Goals Goal(s): Improve function, Improve disease control Activity Recommendations Activity Limitations: per Instructions/Follow-up section Driving or Machine Use: no limitations . Instructions / Follow-Up Instructions / Follow-Up Hospital course and Discharge instructions 81-year-old male who presents to the emergency room with his daughter reporting confusion and dizziness as well as fevers chills back pain, confused speech, and a dry cough for the last 2 days Patient was evaluated by night time medical doctor and as per reports these symptoms appeared to have generally resolved by the time he was admitted as inpatient On re-evaluation by day time medical doctor, patient without any discomfort, breathing on room air, and ambulating while on room air without difficulties Patient is positive for influenza B and received Tamiflu (Oseltamivir) medication in the hospital and to be given discharge prescription for Tamiflu ( Oseltamivir) On Chest X ray there is cardiomegaly with mild pulmonary vascular congestion; Subsegmental left basilar opacities suggest atelectasis or pneumonitis with probable trace left pleural effusion No strong evidence for community acquire pneumonia but patient was empirically given ceftriaxone and azithromycin in the hospital for possible community acquire pneumonia. Patient to be discharge with prescription of azithromycin for completion of treatment in case there is community acquire pneumonia Discharge diagnosis fever from Influenza B or possible community acquired pneumonia nonischemic cardiomyopathy status post ICD with left bundle branch block ( chronic conditions) back pain (resolved) Patient has follow up appointment 08/05/2017 1:20 PM Augusto Monson MD Internal Medicine [facility] Patient will benefit from repeat chest X ray as outpatient to follow up hospital imaging findings Patient also has prior made appointments with cardiology 08/24/2017 10:30 AM [facility] 09/22/2017 9:30 AM Shipping Specialist 1 Gw Cardiac Studies, [facility] 09/29/2017 9:30 AM Lupillo Quintero DO Cardiology [facility] Current Hospital Diet Patient's current hospital diet: AHA Diet (Heart Healthy) Discharge Diet Recommended Diet: AHA Diet (Heart Healthy) Pending Studies Studies pending at discharge: no Laboratory Results 07/31/17 07:38 07/31/17 07:38 Test 07/30/17 20:00 07/30/17 20:55 07/30/17 21:00 07/30/17 21:05 Immature Granulocyte % (Auto) 0.2 % White Blood Count 5.63 K/uL (4.8-10.8) Red Blood Count 4.59 M/uL (4.7-6.1) Hemoglobin 15.2 g/dL (14.0-18.0) Hematocrit 42.6 % (42-52) Mean Corpuscular Volume 92.8 fL (80-100) Mean Corpuscular Hemoglobin 33.1 pg (25-34) Mean Corpuscular Hemoglobin Concent 35.7 g/dl (32-36) Platelet Count 160 K/uL (130-400) Mean Platelet Volume 9.9 fL (7.4-10.4) Neutrophils (%) (Auto) 82.4 % Lymphocytes (%) (Auto) 10.8 % Monocytes (%) (Auto) 6.4 % Eosinophils (%) (Auto) 0.0 % Basophils (%) (Auto) 0.2 % Neutrophils # (Auto) 4.64 K/uL (1.4-6.5) Lymphocytes # (Auto) 0.61 K/uL (1.2-3.4) Monocytes # (Auto) 0.36 K/uL (0.11-0.59) Eosinophils # (Auto) 0.00 K/uL (0-0.5) Basophils # (Auto) 0.01 K/uL (0-0.2) Immature Granulocyte # (Auto) 0.01 K/uL (0.00-0.02) Total Bilirubin 0.6 mg/dl (0.2-1) Direct Bilirubin 0.2 mg/dl (0-0.2) Aspartate Amino Transf (AST/SGOT) 24 U/L (15-37) Alanine Aminotransferase (ALT/SGPT) 26 U/L (12-78) Alkaline Phosphatase 84 U/L (45-117) Total Protein 7.6 gm/dl (6.4-8.2) Albumin 4.2 gm/dl (3.4-5.0) Lipase 139 U/L (73-393) Influenza Type A Antigen Neg for Influ A (NEG) Influenza Type B Antigen POS for Influ B (NEG) Urine Color YELLOW Urine Appearance CLEAR (CLEAR) Urine pH 5.0 (4.5-7.5) Urine Specific [place] 1.018 (1.000-1.030) Urine Protein NEG (NEG) Urine Glucose (UA) NEG (NEG) Urine Ketones TRACE (NEG) Urine Occult Blood TRACE (NEG) Urine Nitrite NEG (NEG) Urine Bilirubin NEG (NEG) Urine Urobilinogen NEG (NEG) Urine Leukocyte Esterase NEG (NEG) Urine WBC (Auto) 0 /hpf (0-5) Urine RBC (Auto) 0-4 /hpf (0-4) Urine Hyaline Casts (Auto) 0 /lpf (0-5) Urine Epithelial Cells (Auto) 0-5 /lpf (0-5) Urine Bacteria (Auto) NEG (NEG) Bedside Troponin I < 0.030 ng/ml (0-0.045) Test 07/31/17 07:38 Red Blood Count 4.73 M/uL (4.7-6.1) Mean Corpuscular Volume 92.8 fL (80-100) Mean Corpuscular Hemoglobin 31.7 pg (25-34) Mean Corpuscular Hemoglobin Concent 34.2 g/dl (32-36) RDW Standard Deviation 46.3 fL (36.4-46.3) RDW Coefficient of Variation 13.6 % (11.5-14.5) Mean Platelet Volume 9.6 fL (7.4-10.4) Prothrombin Time 10.9 SECONDS (9.0-12.0) Prothromb Time International Ratio 1.0 (0.9-1.1) Anion Gap 7.0 mmol/L (3-11) Est Creatinine Clear Calc Drug Dose 79.3 ml/min Estimated GFR () 99.5 Estimated GFR (Non- 85.9 BUN/Creatinine Ratio 15.5 (10-20) Calcium Level 8.3 mg/dl (8.5-10.1) Medical Emergencies . Who to Call and When: Medical Emergencies: If at any time you feel your situation is an emergency, please call 911 immediately. . Non-Emergent Contact Non-Emergency issues call your: Primary Care Provider . . "Provider Documentation" section prepared by Volodymyr Osorio. .
--- NOTE | 2017-07-31 13:21 | Discharge Summary ---
Discharge Summary Date of Service Jul 31, 2017. 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 TAKE AT LEAST 30 MINUTES BEFORE BREAKFAST OR ANY OTHER MEDICATION. Losartan Potassium (Losartan Potassium) 25 Mg Tab 25 MG PO QAM Melatonin (Melatonin Maximum Strengt) 5 Mg Tab 5-10 MG PO HS PRN for Sleep, TAB Metoprolol Succinate (Metoprolol Succinate ER) 100 Mg Tabcr 100 MG PO QAM Nitroglycerin (Nitrostat) 0.4 Mg Tab 0.4 MG UT UD PRN for Chest Pain, BTL Omeprazole (Prilosec) 20 Mg Cap 20 MG PO QAM TAKE THIS MEDICATION ONCE DAILY ONE HOUR BEFORE FIRST MEAL OF THE DAY Spironolactone (Spironolactone) 25 Mg Tab 12.5 MG PO QAM Discontinued Medications: Diphenhydramine Hcl (Benadryl Allergy) 25 Mg Cap 1 CAP PO HS PRN for insomnia for 30 Days, #30 CAP 1 Refill Admission Information HPI (per Admitting provider): The patient is a 81-year-old male who presents to the emergency room with his daughter reporting confusion and dizziness as well as fevers chills back pain, confused speech, and a dry cough for the last 2 days. The patient currently states that he is feeling well overall after receiving Tylenol and. He has no gross neurologic deficits and walked into the ER himself tonight. Daughter reports that around the house today he was walking around in a heavy bathrobe and appearing to have malaise regarding confusion, there was no speech deficit or strokelike symptoms however the patient was not responding to questions appropriately. This was unlike his baseline. He is currently alert and oriented 3. The patient is not able to give a good picture of what has been going on at home in the last he was febrile in the ER up to 38.1 on arrival which is improved with Tylenol. Daughter states he was up all night last night with runny nose and cough. Review of systems reveals no diarrhea abdominal pain headache chest pain or shortness of breath. Cough is nonproductive. In the ER blood pressure is 141/77 pulse 92 he is oxygenating 96% on room air. Lab results reveal a normal white count normal H&H, normal renal function and normal electrolytes. He is flu B+. Urinalysis was negative for bacteria. Physical Exam (per Admitting): General Appearance: WD/WN, no apparent distress Head: normocephalic, atraumatic Eyes: normal inspection, PERRL, sclerae normal ENT: hearing grossly normal, pharynx normal Neck: supple, no adenopathy, no JVD, trachea midline Respiratory/Chest: chest non-tender, lungs clear, normal breath sounds, no respiratory distress, no accessory muscle use, + pertinent finding (ICD in place left anterior chest wall) Cardiovascular: regular rate, rhythm, no edema, no gallop, no murmur, normal peripheral pulses Abdomen/GI: normal bowel sounds, non tender, soft, no organomegaly Extremities/Musculoskelatal: normal inspection, no calf tenderness, normal capillary refill, no pedal edema, normal range of motion Neurologic/Psych: auto washer II-XII nml as tested, no motor/sensory deficits, alert , normal mood/affect, oriented x 3 Skin: normal color, warm/dry, no rash Hospital Course Hospital course and Discharge instructions 81-year-old male who presents to the emergency room with his daughter reporting confusion and dizziness as well as fevers chills back pain, confused speech, and a dry cough for the last 2 days Patient was evaluated by night time medical doctor and as per reports these symptoms appeared to have generally resolved by the time he was admitted as inpatient On re-evaluation by day time medical doctor, patient without any discomfort, breathing on room air, and ambulating while on room air without difficulties Patient is positive for influenza B and received Tamiflu (Oseltamivir) medication in the hospital and to be given discharge prescription for Tamiflu ( Oseltamivir) On Chest X ray there is cardiomegaly with mild pulmonary vascular congestion; Subsegmental left basilar opacities suggest atelectasis or pneumonitis with probable trace left pleural effusion No strong evidence for community acquire pneumonia but patient was empirically given ceftriaxone and azithromycin in the hospital for possible community acquire pneumonia. 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 Cardiology, [facility] 09/22/2017 9:30 AM Pageant Director 1 Gw Cardiac Studies, [facility] 09/29/2017 9:30 AM Lupillo Quintero DO Cardiology [facility] Total time spent on discharge = 60 minutes This includes examination of the patient, discharge planning, medication reconciliation, and communication with other providers. Discharge Instructions see above
[2017-07-31 13:59] VITALS: BP 139/65; PULSE 91; TEMP 37.3; O2SAT 97
[2017-07-31] MEDS ORDERED: AZITHROMYCIN 250 MG TAB PO SCH (21:00)
[2017-07-31] MEDS ORDERED: ASPIRIN 81 MG ECTAB PO SCH (21:00)
[2017-07-31] MEDS ORDERED: CEFTRIAXONE SOD INJ 1 GM in DEXTROSE 5% ADD-VANTAGE 50ML 50 ML IV SCH (21:00)
[2017-07-31] MEDS ORDERED: ATORVASTATIN 20 MG TAB PO SCH (21:00)
== END 2017-07-31 14:20 | disposition home or self-care (01) | DRG 193 ==
LOC: C.EDB 19:31 → C.MS4W 22:38 → ENRESERV 22:50
PROVIDERS: ADMIT Hospitalist; ATTEND Hospitalist
DX: J11.00 Influenza due to unidentified influenza virus with unspecified type of pneumonia (principal); G93.41 Metabolic encephalopathy; I42.9 Cardiomyopathy, unspecified; I25.10 Atherosclerotic heart disease of native coronary artery without angina pectoris; G89.29 Other chronic pain; E78.00 Pure hypercholesterolemia, unspecified; E03.9 Hypothyroidism, unspecified; I44.7 Left bundle-branch block, unspecified; M54.9 Dorsalgia, unspecified; I34.0 Nonrheumatic mitral (valve) insufficiency; N40.0 Benign prostatic hyperplasia without lower urinary tract symptoms; Z95.810 Presence of automatic (implantable) cardiac defibrillator; Z79.82 Long term (current) use of aspirin; Z83.3 Family history of diabetes mellitus; Z82.49 Family history of ischemic heart disease and other diseases of the circulatory system